=== PATIENT | female | born 2000 | race African-American/Black ===

== ENCOUNTER 2023-07-18 12:20 | Emergency (ER) | payer OTHER, MEDICAID, SELFPAY ==
[2023-07-18 12:40] VITALS: BP 129/73; PULSE 86; RESP 15; TEMP 36.9; O2SAT 100; BMI 30.2
== END 2023-07-18 19:25 | disposition left against medical advice (07) ==
PROVIDERS: Emergency Provider Emergency Medicine
DX: R07.9 Chest pain, unspecified (principal)
CPT/HCPCS: 93005; 99281

== ENCOUNTER 2024-02-25 17:19 | Emergency (ER) | payer OTHER, MEDICAID, SELFPAY ==
[2024-02-25 17:20] VITALS: BP 146/76; PULSE 95; RESP 18; TEMP 37.1; O2SAT 100; BMI 27.2
--- NOTE | 2024-02-25 17:26 | DI.US.S_ITS ---
PROCEDURE: US OB <= 14 WEEKS FETUS INDICATIONS: BLEEDING AT 7 WEEKS OUTSIDE/PRIOR DATING DATA: Last menstrual period (LMP): 01/07/2024 LMP-based estimated date of delivery (LUIS A): 10/13/2024 First dating scan (date and location): 02/25/2024 Estimated date of delivery (LUIS A) from first dating scan: 10/12/2024 TECHNIQUE: Real-time scanning was performed of the fetus and maternal pelvic organs, with image documentation. Endovaginal scanning was also performed to better visualize the fetus and maternal ovaries. COMPARISON: None. FINDINGS: Embryo: Intrauterine gestational sac is seen with yolk sac and pole. [place]-rump length is 1.1 cm compatible with an estimated gestational age of 7 weeks 1 day. Heart rate: 143 beats per minute Maternal organs: Left ovary not visualized. Right ovary appears normal. A prominent perigestational sac hemorrhage is seen measuring 3.5 x 2.7 x 1.5 cm. IMPRESSION: 1. Single live intrauterine and size is concordant with clinical dates. 2. Prominent perigestational sac hemorrhage measuring 3.5 x 2.7 x 1.5 cm. Approved by: Sonny Christian M.D. on 02/25/2024 at 19:04
[2024-02-25 17:53] LABS: Add Manual Diff / Slide Review NO; Basophils Absolute Auto 0 /uL (0-100); Basophils Percent Auto 0.5 % (0-2); Eosinophils Absolute Auto 100 /uL (0-450); Eosinophils Percent Auto 1.4 % (2-4); Hemoglobin 12.3 g/dL (12.0-16.0); Lymphocytes Absolute Auto 2600 /uL (1100-4500); Mean Corpuscular HGB Conc 33.2 % (30-36); Mean Corpuscular Hemoglobin 28.5 PG (26-34); Mean Corpuscular Volume 85.7 fL (80-100); Monocytes Absolute Auto 700 /uL (0-900); Monocytes Percent Auto 9.8 % (3-14); Neutrophils Absolute Auto 3800 /uL (1500-7000); Neutrophils Percent Auto 52.3 % (50-75); Platelet Count 431 X10^3/uL (150-400); Red Blood Cell Count 4.32 X10^6/uL (4.0-5.2); Red Cell Distribution Width 14.5 % (11.6-14.8); White Blood Cell Count 7.2 X10^3/uL (4.5-11.0)
[2024-02-25 18:04] LABS: Alanine Aminotransferase 13 IU/L (<35); Albumin 4.6 g/dL (3.5-5.0); Albumin Globulin Ratio 1.3 (1.0-2.8); Alkaline Phosphatase 79 U/L (38-126); Aspartate Aminotransferase 19 IU/L (14-36); Bilirubin Total 0.6 mg/dL (0.2-1.3); Blood Urea Nitrogen 3 mg/dL (7-17); Calcium 10.1 mg/dL (8.4-10.2); Carbon Dioxide 23 mmol/L (22-32); Chloride 105 mmol/L (98-107); Estimated Glomerular Filt Rate > 60 mL/min (>60); Globulin 3.5 g/dL (1.7-4.1); Glucose 100 mg/dL (70-100); HEMOLYSIS < 15 (0-50); Potassium 3.3 mmol/L (3.4-5.1); Sodium 138 mmol/L (137-145); Total Protein 8.1 g/dL (6.3-8.2)
[2024-02-25 18:44] LABS: HCG Quantitative /Beta subunit 72917 mIU/mL
== END 2024-02-25 20:09 | disposition left against medical advice (07) ==
PROVIDERS: Emergency Medicine; Emergency Provider Emergency Medicine
DX: O46.90 Antepartum hemorrhage, unspecified, unspecified trimester (principal); Z3A.00 Weeks of gestation of pregnancy not specified
CPT/HCPCS: 36415; 76801; 76817; 80053; 84702; 85025; 86850; 86900; 86901; 99283

== ENCOUNTER → 2024-06-01 08:36 | Outpatient (CLI) | payer OTHER, MEDICAID, SELFPAY ==
[2024-06-01 09:35] LABS: Add Manual Diff / Slide Review NO; Basophils Absolute Auto 0 /uL (0-100); Basophils Percent Auto 0.7 % (0-2); Eosinophils Absolute Auto 0 /uL (0-450); Eosinophils Percent Auto 0.7 % (2-4); Hematocrit 32.6 % (36-46); Hemoglobin 10.8 g/dL (12.0-16.0); Lymphocytes Absolute Auto 1500 /uL (1100-4500); Mean Corpuscular HGB Conc 33.1 % (30-36); Mean Corpuscular Hemoglobin 27.3 PG (26-34); Mean Corpuscular Volume 82.4 fL (80-100); Monocytes Absolute Auto 500 /uL (0-900); Monocytes Percent Auto 8.7 % (3-14); Neutrophils Absolute Auto 3600 /uL (1500-7000); Neutrophils Percent Auto 63.9 % (50-75); Platelet Count 431 X10^3/uL (150-400); Red Blood Cell Count 3.95 X10^6/uL (4.0-5.2); Red Cell Distribution Width 14.3 % (11.6-14.8); White Blood Cell Count 5.7 X10^3/uL (4.5-11.0)
[2024-06-01 12:57] LABS: Urine N gonorrhoeae NOT DETECTED
[2024-06-01 15:46] LABS: Urine Chlamydia NOT DETECTED
[2024-06-01 17:04] LABS: Hepatitis B Surface Antigen NEGATIVE s/c (NEGATIVE); Rubella Antibody IgG 12.8 IU/mL (>15)
[2024-06-01 17:20] LABS: HIV 1 & 2 Ab/Ag 4th Gen Combo NEGATIVE (NEGATIVE); Hep C Virus Ab w/Reflex Quant NEGATIVE s/c (NEGATIVE)
[2024-06-02 08:10] LABS: RPR Screen Non Reactive (Non Reactive)
[2024-06-02 09:12] LABS: Varicella IgG Antibody <135 index (Immune >165)
== END ==
PROVIDERS: Referring Provider Student in an Organized Health Care Education/Training Program; Visit Provider Student in an Organized Health Care Education/Training Program
DX: Z34.80 Encounter for supervision of other normal pregnancy, unspecified trimester (principal)
CPT/HCPCS: 36415; 80055; 86787; 86803; 86850; 86900; 86901; 87086; 87389; 87491; 87591

== ENCOUNTER → 2024-06-04 14:25 | Outpatient (CLI) | payer OTHER, MEDICAID, SELFPAY ==
--- NOTE | 2024-06-04 14:26 | DI.US.S_ITS ---
PROCEDURE: US OB >= 14 WEEKS FETUS INDICATIONS: anatomy OUTSIDE/PRIOR DATING DATA: Last menstrual period (LMP): 01/07/24. LMP-based estimated date of delivery (LUIS A): 10/13/24. First dating scan (date and location): 02/25/24. Estimated date of delivery (LUIS A) from first dating scan: 10/12/24. The calculations are made using the working LUIS A of 10/13/24. TECHNIQUE: Real-time scanning was performed of the fetus, with image documentation and biometric measurements. Endovaginal scanning: No COMPARISON: None. FINDINGS: General: A single living intrauterine gestation is present. Presentation: Vertex. Placenta: Placental position is posterior, left , without previa. Amniotic fluid index: 12.4 cm, normal range is 5-24 cm. Single deepest vertical pocket is 3.8 cm. heart rate: 152 beats per minute. Maternal cervical canal: Closed and 4.1 cm long. Normal lower limit is 2.5 cm. biometrics: Biparietal diameter: 4.7 cm, 20 weeks two days Head circumference: 17.4 cm, 19 weeks six days Abdominal circumference: 16.3 cm, 21 weeks two days Femur length: 3.5 cm, 21 weeks one Clinically estimated gestational age: 21 weeks two days Composite gestational age from present scan: 20 weeks five days Estimated weight and percentile: 396 g, 32nd percentile Anatomic survey: Neuro: Ventricles are non-dilated at less than 10 mm. Cisterna magna is normal at 3-11 mm. Cerebellum is normal in size and morphology. Nuchal skin fold: Normal at less than 6 mm between 14-21 weeks gestational age. Face: Nose and lips, facial profile are normal. Spine: No evidence for spina bifida. Heart: 4-chambered heart is present, with normal ventricular outflow tracts. Diaphragm: Diaphragm is intact. Stomach: Left-sided stomach is present. Kidneys: No hydronephrosis. Normal is less than 5 mm in 2nd trimester, less than 7 mm in 3rd trimester. Cord: 3-vessel cord has orthotopic insertion. Bladder: Normal in size. Extremities: All 4 extremities identified. IMPRESSION: Single living intrauterine with estimated weight at the 32nd percentile. Symmetric growth in normal anatomy. Closed cervix and normal amniotic fluid. Posterior placenta. We strive to produce accurate, complete, and clear reports of imaging services. To assist us in improving patient care, this report was composed using standard report templates and voice recognition software. Therefore, it may contain abnormal punctuation, insertions and/or omissions. Occasional wrong-word or sound-alike substitutions may occur. Though we review the report and make efforts to correct it, we do recommend that the report be read carefully in proper context to recognize any text inaccuracies. Dictated by: Daja Cummings M.D. on 06/04/2024 at 16:43 Approved by: Daja Cummings M.D. on 06/04/2024 at 16:48
== END ==
PROVIDERS: Referring Provider Student in an Organized Health Care Education/Training Program; Visit Provider Student in an Organized Health Care Education/Training Program
DX: Z34.82 Encounter for supervision of other normal pregnancy, second trimester (principal); Z3A.20 20 weeks gestation of pregnancy
CPT/HCPCS: 76811

== ENCOUNTER → 2024-07-23 10:59 | Outpatient (CLI) | payer OTHER, MEDICAID, SELFPAY ==
[2024-07-23 12:39] LABS: Hematocrit 31.1 % (36-46); Hemoglobin 9.9 g/dL (12.0-16.0)
[2024-07-23 13:00] LABS: GTT (PREG) 1 Hour PP 50gm Dose 137 mg/dL (76-139)
== END ==
PROVIDERS: Referring Provider Student in an Organized Health Care Education/Training Program; Visit Provider Student in an Organized Health Care Education/Training Program
DX: Z34.82 Encounter for supervision of other normal pregnancy, second trimester (principal); Z3A.26 26 weeks gestation of pregnancy
CPT/HCPCS: 36415; 82950; 85014; 85018

== ENCOUNTER 2024-08-27 05:01 | Inpatient (IN) | payer OTHER, MEDICAID, SELFPAY ==
[2024-08-27] VITALS (57 sets, daily range): BP systolic 108–173; BP diastolic 65–116; PULSE 68–127; RESP 16–46; TEMP 36.6–37.1; O2SAT 96–100
[2024-08-27] MEDS: LACTATED RINGERS 1,000 ML 1000 ML IV (05:05)
--- NOTE | 2024-08-27 05:12 | ED.SEIZURE ---
HPI - Seizure General Chief Complaint: Seizure Stated Complaint: seizure/7mo preg Time Seen by Provider: 08/27/24 05:04 Source: family (), EMS, RN notes reviewed and old records reviewed Mode of arrival: EMS Limitations: altered mental status History of Present Illness HPI Narrative: 23-year-old proximally 33 weeks' gestation with estimated delivery date of 10/12/2024 presents with report of seizure activity with who states he woke up to patient shaking with generalized tonic-clonic type activity, he states when he woke up last about 3 or 4 minutes. EMS was contacted when they arrived patient was altered did have some additional seizure activity EN route. Patient received 4 g of Mag EN route as well as Versed. He states last night her stomach was bothering her, she did not eat very much but states no recent fevers no cold cough or congestion. No complaints of chest pain or shortness breath. He states that she was noting she was having a lot of Angel Yadav contractions recently. No reports of vaginal bleeding or fluid. No reports of abdominal pain. Patient does not have any history of seizure disorder. He states she is on prenatals but no other known medications. Prior delivery was vaginal. Denies any prior surgeries for . No known drug allergies. No tobacco, alcohol or recreational drugs. Patient has been receiving her care with Dr. Milton here locally Related Data Previous Rx's Medication Instructions Recorded acetaminophen 325 mg tablet 325 mg PO Q4-6H PRN pain #30 tabs 08/31/24 docusate sodium 100 mg capsule 100 mg PO DAILY Prevent 08/31/24 constipation #20 caps ferrous gluconate 324 mg (37.5 mg 324 mg PO DAILY Anemia #30 tabs 08/31/24 iron) tablet ibuprofen 600 mg tablet 600 mg PO Q6H PRN pain #30 tabs 08/31/24 labetalol 300 mg tablet 300 mg PO TID High blood pressure 08/31/24 #60 tabs nifedipine 30 mg tablet,extended 30 mg PO BID High blood pressure 08/31/24 release #60 tabs oxycodone 5 mg tablet 5 mg PO Q6H PRN pain #20 tabs 08/31/24 Allergies Allergy/AdvReac Type Severity Reaction Status Date / Time No Known Drug Allergies Allergy Verified 07/23/24 14:05 Review of Systems Review of Systems ROS Unobtainable: Unobtainable due to mental status/LOC Patient History Medical History (Updated 08/30/24 @ 08:54 by Giana Landis MD) Eclampsia Vaginal delivery Staph infection Surgical History History of dental surgery Family History Mother Cardiac arrhythmia Sister IBS (irritable bowel syndrome) Family/Other Cerebral palsy Family/Other Congenital deafness Social History marital status: number of children: 1 household members: spouse and children lives independently: Yes caregiver/support person: Yes housing: apartment pets and animals: No education level: high school occupational status: employed current occupational exposures/hazards: No special hermelindo needs: No travel history: over 6 months ago seatbelt use: sometimes water heater temp set < 120 deg: Yes working smoke detector in home: Yes fire extinguisher in home: No carbon monox detector in home: Yes firearms in home: No do you feel safe at home: Yes Smoking Status: Current some day smoker second hand exposure: No alcohol intake: former (very occasionally when not ) substance use type: marijuana (still using while , 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 Patient did localize to pain with IV. HEENT: Atraumatic, pupils are pinpoint and equal, extraocular movements are intact, nares are clear, TMs are clear with no fluid, there is no conjunctival pallor. Throat is clear without any exudates, erythema, tonsillar enlargement or uvular deviation, no facial droop. Nasal cannula in place. HEART: Tachycardic but regular rate and rhythm without murmur, clicks, rubs. No carotid bruits, pulses are equal in upper and lower extremities LUNGS:Lungs clear to auscultation, no wheezes, rales, crackles, chest moves symmetrically, no tachypnea. ABD:bowel sounds normal, soft, non-tender, no guarding, rebound, rigidity, no masses noted, no hepatosplenomegaly : Gravid, no contractions appreciated. MSCL: Non-tender, NEURO:CN 2-12 intact, sensation normal, no hyperreflexia DTRs are decreased bilaterally at patella, no clonus SKIN: Patient does have what appears to be a bite landon on her right distal forearm. Initial Vital Signs Initial Vital Signs: Vital Signs Temperature 98.8 F 08/27/24 05:02 Pulse Rate 126 H 08/27/24 05:02 Respiratory Rate 31 H 08/27/24 05:02 Blood Pressure 124/69 08/27/24 05:02 Pulse Oximetry 97 08/27/24 05:02 Oxygen Delivery Method Nasal Cannula 08/27/24 05:02 Oxygen Flow Rate 6 08/27/24 05:02 Course Orders Ordered: Discontinued Medications Acetaminophen (Acetaminophen 325 Mg Tablet) 650 mg PO Q6H FLORINA Last Admin: 08/31/24 06:10 Dose: 650 mg Documented By: Admin: 08/31/24 00:07 Dose: 650 mg Documented By: Admin: 08/30/24 18:37 Dose: 650 mg Documented By: Admin: 08/30/24 12:44 Dose: 650 mg Documented By: Admin: 08/30/24 12:22 Dose: 650 mg Documented By: Admin: 08/30/24 02:27 Dose: 650 mg Documented By: SC Admin: 08/29/24 18:06 Dose: 650 mg Documented By: Admin: 08/29/24 10:49 Dose: 650 mg Documented By: Admin: 08/29/24 04:24 Dose: 650 mg Documented By: SC Admin: 08/28/24 18:54 Dose: 650 mg Documented By: Admin: 08/28/24 09:09 Dose: 650 mg Documented By: Admin: 08/28/24 01:57 Dose: 650 mg Documented By: Admin: 08/27/24 19:51 Dose: 650 mg Documented By: AR Albuterol (Albuterol 2.5 Mg/3 Ml Neb (Adult)) 2.5 mg INH NOW PRN PRN Reason: Coughing, Wheezing, Dyspnea Bacitracin (Bacitracin Oint 0.9 Gm Pckt) 1 applic TOP BID [facility] Last Admin: 08/31/24 08:22 Dose: 1 applic Documented By: Admin: 08/30/24 08:45 Dose: 1 applic Documented By: Admin: 08/30/24 08:32 Dose: 1 applic Documented By: Admin: 08/29/24 08:39 Dose: 1 applic Documented By: HPYuri Admin: 08/28/24 09:08 Dose: 1 applic Documented By: Admin: 08/27/24 16:00 Dose: 1 applic Documented By: SC Betamethasone Acet/Betameth SodPhos (Betamethasone 30 Mg/5 Ml Mdv) 12 mg IM NOW ONE Stop: 08/27/24 07:30 Last Admin: 08/27/24 07:37 Dose: 12 mg Documented By: JANE Carboprost Tromethamine (Carboprost 250 Mcg/Ml Ampul) 250 mcg IM Q90M PRN PRN Reason: Bleeding Citric Acid/Sodium Citrate (Citric Acid/Sodium Citrate 15 Ml Solution) 30 ml PO NOW ONE Stop: 08/27/24 08:07 Last Admin: 08/27/24 08:20 Dose: 30 ml Documented By: Diphenhydramine HCl (Diphenhydramine 50 Mg/Ml Vial) 25 mg IV Q3HR PRN PRN Reason: PRURITUS Stop: 08/28/24 08:46 Diphtheria/Tetanus/Acell Pertussis (Tet,Diph,Pertuss(Acell),Vac/Pf 0.5 Ml Syringe) 0.5 ml IM .ONCE ONE Stop: 08/27/24 10:48 Docusate Sodium (Docusate 100 Mg Capsule) 100 mg PO DAILY [facility] Last Admin: 08/31/24 08:21 Dose: 100 mg Documented By: Admin: 08/30/24 08:31 Dose: 100 mg Documented By: Admin: 08/29/24 08:41 Dose: 100 mg Documented By: Admin: 08/28/24 09:08 Dose: 100 mg Documented By: GÓMEZ Emollient Ointment (Lanolin Oint 7 Gm) 1 applic TOP PRN PRN PRN Reason: Skin protectant Last Admin: 08/28/24 09:08 Dose: 1 applic Documented By: GÓMEZ Hydralazine HCl (Hydralazine 20 Mg/Ml Vial) 5 mg IV NOW ONE Stop: 08/27/24 07:01 Last Admin: 08/27/24 07:03 Dose: 5 mg Documented By: AB Hydralazine HCl (Hydralazine 20 Mg/Ml Vial) 5 mg IV NOW ONE Stop: 08/27/24 11:55 Last Admin: 08/27/24 11:55 Dose: 5 mg Documented By: SC Hydralazine HCl (Hydralazine 20 Mg/Ml Vial) 10 mg IV NOW ONE Stop: 08/27/24 17:48 Last Admin: 08/27/24 17:50 Dose: 10 mg Documented By: SC Hydromorphone HCl (Hydromorphone 1 Mg Inj) 0 mg IV Q5MIN PRN PRN Reason: Pain, Moderate (4-6) Hydroxyzine HCl (Hydroxyzine 50 Mg/Ml Inj) 25 mg IM NOW PRN PRN Reason: Pain, Mild (1-3) Lactated Ringer's (Lactated Ringers) 1,000 mls @ 1,000 mls/hr IV BOLUS ONE Stop: 08/27/24 06:03 Last Infusion: 08/27/24 06:08 Dose: Infused Documented By: Admin: 08/27/24 05:05 Dose: 1,000 mls/hr Documented By: Magnesium Sulfate (Magnesium Sulfate) 20 gm in 500 mls @ 50 mls/hr IV CONT FLORINA Last Admin: 08/28/24 02:50 Dose: 50 mls/hr Documented By: MARILYN Co-signed By: CHELA Infusion: 08/28/24 02:50 Dose: Infused Documented By: MARILYN Co-signed By: CHELA Admin: 08/27/24 16:50 Dose: 50 mls/hr Documented By: RITA Co-signed By: SNEHAL Infusion: 08/27/24 16:20 Dose: Infused Documented By: RITA Co-signed By: SNEHAL Infusion: 08/27/24 08:17 Dose: 50 mls/hr Documented By: JANE Co-signed By: SOPHY Admin: 08/27/24 06:20 Dose: 50 mls/hr Documented By: Co-signed By: CHELA Lactated Ringer's (Lactated Ringers) 1,000 mls @ 42 mls/hr IV CONT FLORINA Last Admin: 08/28/24 02:50 Dose: 42 mls/hr Documented By: MARILYN Lactated Ringer's (Lactated Ringers) 1,000 mls @ 999 mls/hr IV NOW ONE Stop: 08/27/24 09:06 Last Infusion: 08/27/24 10:49 Dose: Infused Documented By: Admin: 08/27/24 08:21 Dose: 999 mls/hr Documented By: Oxytocin/Lactated Ringer's (Oxytocin Premix) 30 unit in 500 mls @ 200 mls/hr IV CONT PRN; Protocol PRN Reason: Bleeding Cefazolin Sodium/Dextrose (Ancef) 100 mls @ 200 mls/hr IV NOW ONE Stop: 08/27/24 08:35 Last Admin: 08/27/24 09:05 Dose: 200 mls/hr Documented By: ROSINA Acetaminophen (Ofirmev) 1,000 mg in 100 mls @ 400 mls/hr IV NOW ONE Stop: 08/27/24 09:54 Last Admin: 08/27/24 10:01 Dose: 400 mls/hr Documented By: ROSINA Oxytocin/Lactated Ringer's (Oxytocin Premix) 30 unit in 500 mls @ 200 mls/hr IV NOW PRN; Protocol PRN Reason: Bleeding Tranexamic Acid 1,000 mg/ (Sodium Chloride) 100 mls @ 200 mls/hr IV NOW PRN PRN Reason: Bleeding Ibuprofen (Ibuprofen 600 Mg Tablet) 600 mg PO Q6H [facility] Last Admin: 08/31/24 06:10 Dose: 600 mg Documented By: Admin: 08/31/24 00:07 Dose: 600 mg Documented By: Admin: 08/30/24 18:38 Dose: 600 mg Documented By: Admin: 08/30/24 12:43 Dose: 600 mg Documented By: Admin: 08/30/24 12:22 Dose: 600 mg Documented By: Admin: 08/30/24 02:28 Dose: 600 mg Documented By: SC Admin: 08/29/24 18:07 Dose: 600 mg Documented By: Admin: 08/29/24 10:49 Dose: 600 mg Documented By: Admin: 08/29/24 04:24 Dose: 600 mg Documented By: SC Admin: 08/28/24 20:57 Dose: 600 mg Documented By: SC Admin: 08/28/24 13:57 Dose: 600 mg Documented By: ED Ketorolac Tromethamine (Ketorolac 30 Mg/Ml Vial) 30 mg IV Q6H FLORINA Stop: 08/28/24 04:48 Last Admin: 08/28/24 04:10 Dose: 30 mg Documented By: Admin: 08/27/24 22:02 Dose: 30 mg Documented By: Admin: 08/27/24 15:59 Dose: 30 mg Documented By: SC Labetalol HCl (Labetalol 20 Mg/4 Ml Syringe) 10 mg IV NOW ONE Stop: 08/27/24 05:06 Last Admin: 08/27/24 06:08 Dose: Not Given Documented By: AB Labetalol HCl (Labetalol 20 Mg/4 Ml Syringe) 20 mg IV NOW ONE Stop: 08/27/24 05:19 Last Admin: 08/27/24 06:12 Dose: 20 mg Documented By: AB Labetalol HCl (Labetalol 20 Mg/4 Ml Syringe) 20 mg IV NOW ONE Stop: 08/27/24 06:34 Last Admin: 08/27/24 06:36 Dose: 20 mg Documented By: AB Labetalol HCl (Labetalol 20 Mg/4 Ml Syringe) 40 mg IV NOW ONE Stop: 08/27/24 07:21 Last Admin: 08/27/24 07:30 Dose: 40 mg Documented By: JANE Labetalol HCl (Labetalol 20 Mg/4 Ml Syringe) 40 mg IV NOW ONE Stop: 08/27/24 08:44 Last Admin: 08/27/24 08:45 Dose: 40 mg Documented By: ED Labetalol HCl (Labetalol 20 Mg/4 Ml Syringe) 20 mg IV NOW ONE Stop: 08/27/24 16:10 Last Admin: 08/27/24 16:14 Dose: 20 mg Documented By: ED Labetalol HCl (Labetalol 20 Mg/4 Ml Syringe) 40 mg IV NOW ONE Stop: 08/27/24 16:39 Last Admin: 08/27/24 16:38 Dose: 40 mg Documented By: SC Labetalol HCl (Labetalol 100 Mg Tablet) 200 mg PO BID [place] Last Admin: 08/30/24 08:29 Dose: 200 mg Documented By: Admin: 08/29/24 21:39 Dose: 200 mg Documented By: SC Admin: 08/29/24 08:41 Dose: 200 mg Documented By: Admin: 08/28/24 20:57 Dose: 200 mg Documented By: SC Admin: 08/28/24 09:08 Dose: 200 mg Documented By: Admin: 08/27/24 21:03 Dose: 200 mg Documented By: Admin: 08/27/24 17:27 Dose: 200 mg Documented By: SC Labetalol HCl (Labetalol 100 Mg Tablet) 200 mg PO TID [facility] Last Admin: 08/31/24 08:21 Dose: 200 mg Documented By: Admin: 08/30/24 21:13 Dose: 200 mg Documented By: AG Labetalol HCl (Labetalol 100 Mg Tablet) 200 mg PO NOW ONE Stop: 08/30/24 13:05 Last Admin: 08/30/24 13:10 Dose: 200 mg Documented By: CLOVIS Labetalol HCl (Labetalol 100 Mg Tablet) 100 mg PO NOW ONE Stop: 08/31/24 09:32 Last Admin: 08/31/24 10:09 Dose: 100 mg Documented By: Measles/Mumps/Rubella Vaccine Live (Measles,Mumps,Rubella Vacc/Pf 0.5 Ml Vial) 0.5 ml SUBCUT .ONCE ONE Stop: 08/27/24 10:48 Methylergonovine Maleate (Methylergonovine 0.2 Mg/Ml Vial) 0.2 mg IM NOW PRN PRN Reason: Bleeding Methylergonovine Maleate (Methylergonovine 0.2 Mg Tablet) 0.2 mg PO Q6H PRN PRN Reason: Bleeding Midazolam HCl (Midazolam 2 Mg/2 Ml Vial) 2 mg IV NOW ONE Stop: 08/27/24 16:11 Misoprostol (Misoprostol 200 Mcg Tablet) 800 mcg RI NOW PRN PRN Reason: Bleeding Misoprostol (Misoprostol 200 Mcg Tablet) 400 mcg SL NOW PRN PRN Reason: Bleeding Naloxone HCl (Naloxone 0.4 Mg/Ml Vial) 0.4 mg IV Q2MIN PRN PRN Reason: Opiate Reversal Naloxone HCl (Naloxone 0.4 Mg/Ml Vial) 0.2 mg IV Q2MIN PRN PRN Reason: Opiate Reversal Nifedipine (Nifedipine 30 Mg Tab Er) 30 mg PO DAILY [facility] Last Admin: 08/27/24 08:20 Dose: 30 mg Documented By: Nifedipine (Nifedipine 30 Mg Tab Er) 30 mg PO DAILY [facility] Nifedipine (Nifedipine 30 Mg Tab Er) 30 mg PO BID [facility] Last Admin: 08/31/24 08:21 Dose: 30 mg Documented By: Admin: 08/30/24 21:13 Dose: 30 mg Documented By: Admin: 08/30/24 08:31 Dose: 30 mg Documented By: Admin: 08/29/24 21:39 Dose: 30 mg Documented By: SC Admin: 08/29/24 08:40 Dose: 30 mg Documented By: Admin: 08/28/24 20:57 Dose: 30 mg Documented By: SC Admin: 08/28/24 09:08 Dose: 30 mg Documented By: Admin: 08/27/24 21:03 Dose: 30 mg Documented By: MARILYN Nifedipine (Nifedipine 10 Mg Capsule) 10 mg SL NOW ONE Stop: 08/27/24 17:26 Last Admin: 08/27/24 17:27 Dose: 10 mg Documented By: SC Ondansetron HCl (Ondansetron 4 Mg/2 Ml Inj) 4 mg IV NOW PRN PRN Reason: Nausea And Vomiting Ondansetron HCl (Ondansetron 4 Mg/2 Ml Inj) 4 mg IV Q6HR PRN PRN Reason: Nausea Stop: 08/28/24 08:46 Ondansetron HCl (Ondansetron 4 Mg/2 Ml Inj) 4 mg IV Q6H PRN PRN Reason: Nausea And Vomiting Oxycodone HCl (Oxycodone Ir 5 Mg Tablet) 5 mg PO [place] PRN PRN Reason: Mild or moderate pain Oxycodone HCl (Oxycodone Ir 5 Mg Tablet) 5 mg PO Q4H PRN PRN Reason: Pain, Moderate (4-6) Last Admin: 08/31/24 08:22 Dose: 5 mg Documented By: Admin: 08/29/24 21:40 Dose: 5 mg Documented By: SC Oxytocin (Oxytocin 10 Unit/Ml Vial) 10 unit IM NOW PRN PRN Reason: Bleeding Oxytocin (Oxytocin 10 Unit/Ml Vial) 10 unit IM NOW PRN PRN Reason: Bleeding Vit/Calcium/Iron/Folic Ac ( Vit,Calc/Iron/Folic 1 Tablet) 1 tab PO DAILY [facility] Last Admin: 08/31/24 08:21 Dose: 1 tab Documented By: Admin: 08/30/24 08:31 Dose: 1 tab Documented By: Admin: 08/29/24 08:41 Dose: 1 tab Documented By: HPYuri Admin: 08/28/24 09:08 Dose: 1 tab Documented By: ED Rho Immune Globulin (Rho(D) Immune Globulin 1,500 Unit Syringe) 1,500 unit IM NOW PRN PRN Reason: Prevent Rh incomatibility Witch Stefanie/Glycerin (Witch Stefanie/Glycerin Pads) 1 each TOP Q30M PRN PRN Reason: Itching Vital Signs Vital signs: Vital Signs - 8 hr 08/27/24 05:02 08/27/24 05:05 08/27/24 05:06 Temperature 98.8 F Pulse Rate 126 H 127 H Respiratory Rate 31 H 46 H Blood Pressure 124/69 124/69 Pulse Oximetry 97 97 Oxygen Delivery Method Nasal Cannula Nasal Cannula Oxygen Flow Rate 6 6 08/27/24 05:06 08/27/24 05:10 08/27/24 05:13 Temperature Pulse Rate 126 H 125 H 126 H Respiratory Rate 37 H 46 H 32 H Blood Pressure Pulse Oximetry 97 97 97 Oxygen Delivery Method Nasal Cannula Nasal Cannula Nasal Cannula Oxygen Flow Rate 6 3 3 08/27/24 05:13 08/27/24 05:15 08/27/24 05:15 Temperature Pulse Rate 126 H Respiratory Rate 31 H Blood Pressure 140/86 145/86 H Pulse Oximetry 98 Oxygen Delivery Method Nasal Cannula Oxygen Flow Rate 1 08/27/24 05:20 08/27/24 05:20 08/27/24 05:25 Temperature Pulse Rate 114 H 107 H Respiratory Rate 33 H 27 H Blood Pressure 152/90 H Pulse Oximetry 98 98 Oxygen Delivery Method Oxygen Flow Rate 08/27/24 05:25 08/27/24 05:29 08/27/24 05:29 Temperature Pulse Rate 107 H Respiratory Rate 27 H Blood Pressure 143/89 H 153/102 H Pulse Oximetry Oxygen Delivery Method Oxygen Flow Rate 08/27/24 05:30 08/27/24 05:30 08/27/24 05:35 Temperature Pulse Rate 108 H Respiratory Rate 27 H Blood Pressure 144/101 H 142/97 H Pulse Oximetry 97 Oxygen Delivery Method Oxygen Flow Rate 08/27/24 05:35 08/27/24 05:39 08/27/24 05:39 Temperature Pulse Rate 106 H 102 H Respiratory Rate 29 H 21 Blood Pressure 140/96 H Pulse Oximetry 96 98 Oxygen Delivery Method Oxygen Flow Rate 08/27/24 05:40 08/27/24 05:40 08/27/24 05:40 Temperature Pulse Rate 112 H 103 H Respiratory Rate 22 24 Blood Pressure 168/106 H Pulse Oximetry 98 Oxygen Delivery Method Oxygen Flow Rate 08/27/24 05:45 08/27/24 05:45 08/27/24 05:50 Temperature Pulse Rate 116 H 111 H Respiratory Rate 25 H 27 H Blood Pressure 149/102 H Pulse Oximetry 100 Oxygen Delivery Method Room Air Oxygen Flow Rate 08/27/24 05:50 08/27/24 05:55 08/27/24 05:55 Temperature Pulse Rate 118 H Respiratory Rate 25 H Blood Pressure 144/101 H 151/106 H Pulse Oximetry Oxygen Delivery Method Oxygen Flow Rate 08/27/24 05:57 08/27/24 05:57 08/27/24 06:00 Temperature Pulse Rate 117 H 115 H Respiratory Rate 27 H 27 H Blood Pressure 148/104 H Pulse Oximetry 97 97 Oxygen Delivery Method Room Air Oxygen Flow Rate 08/27/24 06:00 Temperature Pulse Rate Respiratory Rate Blood Pressure 158/105 H Pulse Oximetry Oxygen Delivery Method Oxygen Flow Rate MDM - Seizure Lab Data 08/29/24 06:55 08/29/24 06:55 Labs: Lab Results 08/27/24 08/27/24 08/27/24 Range/Units 05:00 05:10 05:32 WBC 12.3 H (4.5-11.0) X10^3/uL RBC 5.20 (4.0-5.2) X10^6/uL Hgb 12.5 (12.0-16.0) g/dL Hct 41.1 (36-46) % MCV 79.1 L (80-100) fL MCH 24.0 L (26-34) PG MCHC 30.4 (30-36) % RDW 17.6 H (11.6-14.8) % Plt Count 230 (150-400) X10^3/uL Neut % (Auto) 84.4 H (50-75) % Lymph % (Auto) 10.7 L (25-40) % Appling % (Auto) 4.5 (3-14) % Eos % (Auto) 0.0 L (2-4) % Baso % (Auto) 0.4 (0-2) % Neut # (Auto) 74267 H (0781-7463) /uL Lymph # (Auto) 1300 (3575-7912) /uL Appling # (Auto) 600 (0-900) /uL Eos # (Auto) 0 (0-450) /uL Baso # (Auto) 0 (0-100) /uL PT 9.4 (9.4-12.5) SECONDS INR 0.8 L (0.9-1.3) APTT 29 (25.1-36.5) SECONDS VBG pH 7.27 L (7.33-7.43) VBG pCO2 34.1 L (45-50) mmHg VBG pO2 67 H (35-45) mmHg VBG HCO3 16 L (24-28) mmol/L VBG Total CO2 15 L (24-29) mmol/L VBG O2 Saturation 90 H (70-75) % VBG Base Excess -10.3 L (0-4) mmol/L FiO2 % 24.0 % % Sodium 133 L (137-145) mmol/L Potassium 3.9 (3.4-5.1) mmol/L Chloride 105 (98-107) mmol/L Carbon Dioxide 9 L* (22-32) mmol/L BUN 7 (7-17) mg/dL Creatinine 0.95 (0.52-1.04) mg/dL Estimated GFR > 60 (>60) mL/min BUN/Creatinine Ratio 7.4 (6-22) Glucose 127 H (70-100) mg/dL Uric Acid 7.5 H (2.5-6.2) mg/dL Calcium 9.3 (8.4-10.2) mg/dL Magnesium 7.1 H* (1.6-2.3) mg/dL Total Bilirubin 0.8 (0.2-1.3) mg/dL AST 322 H (14-36) IU/L ALT 193 H (<35) IU/L Alkaline Phosphatase 372 H (38-126) U/L Total Protein 6.8 (6.3-8.2) g/dL Albumin 3.4 L (3.5-5.0) g/dL Globulin 3.4 (1.7-4.1) g/dL Albumin/Globulin Ratio 1.0 (1.0-2.8) Ethyl Alcohol < 10 ( - 10) mg/dL MDM Narrative Medical decision making narrative: 23-year-old female with no known seizure history had 2 seizures this morning, was noted to be hypertensive 160 systolic in the field received Versed as well as 4 g magnesium EN route, patient had initial blood pressure 128 upon arrival but was trending upwards into the 140s on recheck. Able to wean down O2, patient appears to be protecting airway. Labs were sent. CBC shows white count of 12 hemoglobin 12.5 platelets are 230, INR 0.8, PTT is 29. Sodium is 133, pCO2 is 9, potassium 3.9 chloride 105 BUN 7 creatinine 0.95, Mag is 7.1, uric acid is up at 7.5, AST ALT and alk-phos are all elevated at 322, 193 and VBG shows a pH of 7.27, pCO2 of 34 PO2 of 66 with a bicarb of 15 appears to be metabolic acidosis. Patient received fluids. Spoke with Dr. Mederos covering for OBGYN asked that we continue with 2 g of magnesium per hour, labetalol 20 mg for systolic blood pressure greater than 160. Discussed would like to pain head CT and if negative we will likely transfer to and for continuous monitoring and likely transfer. Did have a sad some additional labs for evaluation of eclampsia. L and D present for NST in the department. Head CT prelim review no obvious bleeding. Formal read is negative for acute intracranial abnormality shows pansinusitis. Rechecked patient is still altered but having more purposeful movement. History obtained from patient's and EMR. Spoke with Dr. Mederos, plan for patient to be transferred to [facility] with the ultimate goal to transfer to [facility] with [facility]. Reviewed head CT labs and recent blood pressures been trending 148/100 diastolic. On rechecked patient's blood pressure was 162 systolic was given 20 mg of labetalol. On rechecked continued to be elevated, Dr. Mederos (Family Medicine/OB) and Dr. Wells (equipment operator/laborer) are in the department with patient and additional 20 mg of labetalol was given. Patient has become more alert, still confused but alert and becoming more interactive over time. Critical Care Time Critical Care Time Critical Care Time: Yes Total Critical Care Time: 45 Attestation: The high probability of a clinically significant, sudden or life threatening deterioration of the cardiac and neurologic system(s) required my full and direct attention, intervention and personal management. The aggregate critical care time was [--] minutes. This time is in addition to time spent performing reported procedures but includes the following: [x] Data Review and interpretation [x] Patient assessment and monitoring of vital signs [x] Documentation [x] Medication orders and management Discharge Plan Departure Patient Disposition: Admitted As Inpatient Clinical Impression: Eclampsia Admit Date/Time: 08/27/24 06:04 Admit Provider: Dionna Mederos
--- NOTE | 2024-08-27 05:16 | DI.CT.S_ITS ---
PROCEDURE: CT HEAD/BRAIN WO CON INDICATIONS: seizure 7months TECHNIQUE: Noncontrast 4.5 mm thick angled axial sections acquired from the foramen magnum to the vertex, with coronal and sagittal reformats. For radiation dose reduction, the following was used: automated exposure control, adjustment of mA and/or kV according to patient size. COMPARISON: None. FINDINGS: Image quality: Diagnostic. CSF spaces: Basal cisterns are patent. No extra-axial fluid collections. Ventricles are normal in size and shape. Brain: No midline shift. No intracranial masses or hemorrhage. Noel-white matter interface is normal. Skull and face: Calvarium and visualized facial bones are intact, without suspicious lesions. Sinuses: Visualized sinuses demonstrate prominent pansinus mucosal thickening. IMPRESSION: No acute intracranial pathology. The above findings are concordant with preliminary report. Dictated by: Neida Gonzalez M.D. on 08/27/2024 at 7:55 Approved by: Neida Gonzalez M.D. on 08/27/2024 at 7:55
[2024-08-27 05:28] LABS: Add Manual Diff / Slide Review NO; Basophils Absolute Auto 0 /uL (0-100); Basophils Percent Auto 0.4 % (0-2); Eosinophils Absolute Auto 0 /uL (0-450); Hematocrit 41.1 % (36-46); Hemoglobin 12.5 g/dL (12.0-16.0); Lymphocytes Absolute Auto 1300 /uL (1100-4500); Lymphocytes Percent Auto 10.7 % (25-40); Mean Corpuscular HGB Conc 30.4 % (30-36); Mean Corpuscular Volume 79.1 fL (80-100); Monocytes Absolute Auto 600 /uL (0-900); Monocytes Percent Auto 4.5 % (3-14); Neutrophils Absolute Auto 10400 /uL (1500-7000); Neutrophils Percent Auto 84.4 % (50-75); Platelet Count 230 X10^3/uL (150-400); Red Cell Distribution Width 17.6 % (11.6-14.8); White Blood Cell Count 12.3 X10^3/uL (4.5-11.0)
[2024-08-27 05:35] LABS: Base Excess VBG -10.3 mmol/L (0-4); HCO3 VBG 16 mmol/L (24-28); Oxygen Saturation VBG 90 % (70-75); PCO2 VBG 34.1 mmHg (45-50); PO2 VBG 67 mmHg (35-45); Total CO2 VBG 15 mmol/L (24-29); pH VBG 7.27 (7.33-7.43)
[2024-08-27 05:39] LABS: INR 0.8 (0.9-1.3); Prothrombin Time 9.4 SECONDS (9.4-12.5)
[2024-08-27 05:40] LABS: Alanine Aminotransferase 193 IU/L (<35); Albumin 3.4 g/dL (3.5-5.0); Alkaline Phosphatase 372 U/L (38-126); Aspartate Aminotransferase 322 IU/L (14-36); BUN Creatinine Ratio 7.4 (6-22); Bilirubin Total 0.8 mg/dL (0.2-1.3); Blood Urea Nitrogen 7 mg/dL (7-17); Calcium 9.3 mg/dL (8.4-10.2); Chloride 105 mmol/L (98-107); Estimated Glomerular Filt Rate > 60 mL/min (>60); Ethanol (ETOH) < 10 mg/dL; Globulin 3.4 g/dL (1.7-4.1); Glucose 127 mg/dL (70-100); HEMOLYSIS 17 (0-50); Potassium 3.9 mmol/L (3.4-5.1); Sodium 133 mmol/L (137-145); Total Protein 6.8 g/dL (6.3-8.2); Uric Acid 7.5 mg/dL (2.5-6.2)
[2024-08-27 05:41] LABS: PTT Partial Thromboplastin Tim 29 SECONDS (25.1-36.5)
[2024-08-27 05:42] LABS: Carbon Dioxide 9 mmol/L (22-32); Magnesium 7.1 mg/dL (1.6-2.3)
--- NOTE | 2024-08-27 06:03 | PC.NURSE ---
OB nurse at bedside 0530, Pt on monitor at 0540. NST will be printed
[2024-08-27] MEDS: LABETALOL 20 MG/4 ML SYRINGE IV ×3 (06:12→16:14)
[2024-08-27] MEDS: MAGNESIUM SULFATE 20 GM/500 ML IV.SOLN IV ×2 (06:20→16:50)
--- NOTE | 2024-08-27 06:22 | DI.US.S_ITS ---
PROCEDURE: US OB LIMITED INDICATIONS: pre-e OUTSIDE/PRIOR DATING DATA: Last menstrual period (LMP): 01/07/2024. LMP-based estimated date of delivery (LUIS A): 10/13/2024. First dating scan (date and location): 03/16/2024. Estimated date of delivery (LUIS A) from first dating scan: 10/12/2024. The calculations are made using the clinical LUIS A of 10/13/2024. TECHNIQUE: Real-time scanning was performed of the fetus, with image documentation and biometric measurements. Biophysical profile was also obtained. Endovaginal scanning: Not performed COMPARISON: 06/04/2024. FINDINGS: General: A single living intrauterine gestation is present. Presentation: Vertex. Placenta: Placental position is posterior left , without previa. Amniotic fluid index: 11.7 cm, normal range is 5-24 cm. Single deepest vertical pocket is 4.2 cm. heart rate: 139 beats per minute. Maternal cervical canal: Not visualized. biometrics: Biparietal diameter: 7.9 centimeters, 31 weeks 6 days Head circumference: 27.6 centimeters, 30 weeks 1 day Abdominal circumference: 24.7 centimeters, 28 weeks 6 days Femur length: 5.6 centimeters, 29 weeks 2 days Clinically estimated gestational age: 33 weeks 2 days Composite gestational age from present scan: 30 weeks 0 days Estimated weight and percentile: 1370 grams Biophysical profile: Tone: 2 points. Movement: 0 points. Respiration: 0 points. Largest pocket of fluid: 2 points. Umbilical artery Doppler: Not requested IMPRESSION: Single living intrauterine at 30 weeks 0 days, LUIS A of 10/13/2024. Estimated weight of 1370 grams. BPP 4 of 8. Accurate primary report sent to ordering provider by the technologist at the time of exam. Agree with preliminary report. Ordering provider was bedside at time of exam. We strive to produce accurate, complete, and clear reports of imaging services. To assist us in improving patient care, this report was composed using standard report templates and voice recognition software. Therefore, it may contain abnormal punctuation, insertions and/or omissions. Occasional wrong-word or sound-alike substitutions may occur. Though we review the report and make efforts to correct it, we do recommend that the report be read carefully in proper context to recognize any text inaccuracies. Dictated by: Kael Baker M.D. on 08/27/2024 at 8:23 Approved by: Kale Baker M.D. on 08/27/2024 at 8:25
[2024-08-27] MEDS: HYDRALAZINE 20 MG/ML VIAL 5 MG IV ×2 (07:03→11:55)
--- NOTE | 2024-08-27 07:05 | P.HPOB_ITS ---
OB HPI Date/Time Date of admission: 08/27/24 Date Patient Seen: 08/27/24 Time Patient Seen: 06:15 History of Present Condition Chief complaint: seizure/7mo preg LUIS A Calculator 2 Estimated Delivery Date Method Current WG Current Estimate 10/12/24 Ultrasound #1 33w 3d Other Estimates 09/23/24 LMP (Uncertain) 36w 1d Estimated Gestational Age (weeks): 33w3d : 2 Para: 1 Narrative: Pt is a 23yo at 33w3d who presented with seizure activity at home. The pts reports he woke to the pt shaking next to him, generalized tonic-clonic, that lasted approximately 3-4 minutes. EMS was immediately contacted, and she was transported to the hospital via ambulance. In the ambulance, the pt received 4g of MgSO4 in addition to Versed. Her BP was noted to be in the 160s systolic. Upon arrival to the ED the pt was postictal and minimally responsive. She has gradually become more responsive with time. Her BP upon presentation to the ED was 124/69. The pts denies any complications with this or her last. She had no history of hypertension, gestational hypertension, or seizures. She had minimal stomach upset last night and ate a smaller than usual dinner, but has otherwise been feeling well. Her daughter did bite her left arm yesterday. He denies any tobacco, recreational drug, or alcohol use. Unable to obtain complete review of systems due to pts postictal state. The pt was late to care starting at 21wks gestation. In the ED, the pts BP gradually juan over time, up to the 160s/110s. She had a head CT completed that was negative. She was continued on MgSO4 2g/hr. She received 20mg IV Labetalol x2, IV Hydralazine 5mg x1, then IV Labetalol 40mg x1 with BPs maintaining in the upper 150s-160s/[id number]. NST was Category II with minimal variability, and BPP was 4/8, with EFW 1378g. care: limited care and initiated at week # (21) Dating criteria OB: based on 2nd trimester US only Ultrasounds: normal mid trimester US Obstetrical complications: none Medical complications OB: none Preadmission Labs Last OB Lab Results: 2 Blood Type A Positive 06/01/24 08:59 Antibody Screen Negative 06/01/24 08:59 Hct 41.1 % (36-46) 08/27/24 05:10 Hgb 12.5 g/dL (12.0-16.0) 08/27/24 05:10 Hep Bs Antigen Negative s/c (NEGATIVE) 06/01/24 08:59 Hepatitis C Antibody Negative s/c (NEGATIVE) 06/01/24 08:59 Rubella Antibody 12.8 IU/mL (>15) L 06/01/24 08:59 VZV IgG Antibody <135 index (Immune >165) L 06/01/24 08:59 Glucose 1 Hr 50 gm 137 mg/dL (76-139) 07/23/24 12:15 -: Urine: negative External Labs -: Urine: negative Prior (ies) Past Pregnancies Del. Date GA/Weeks Labor Lgth Wt Sex Route Outcome Anesthesia Place Delv Breastfeed Preg Comp Name 10/08/21 ~37 13 6 lb 9 oz Female vaginal live - epidural [facility] 6 months delivery Gregorio PFSH Medical History Vaginal delivery Staph infection Surgical History History of dental surgery Family History Mother Cardiac arrhythmia Sister IBS (irritable bowel syndrome) Family/Other Cerebral palsy Family/Other Congenital deafness Social History marital status: number of children: 1 household members: spouse and children lives independently: Yes caregiver/support person: Yes housing: apartment pets and animals: No education level: high school occupational status: employed current occupational exposures/hazards: No special hermelindo needs: No travel history: over 6 months ago seatbelt use: sometimes water heater temp set < 120 deg: Yes working smoke detector in home: Yes fire extinguisher in home: No carbon monox detector in home: Yes firearms in home: No do you feel safe at home: Yes Smoking Status: Never smoker second hand exposure: No alcohol intake: former (very occasionally when not ) substance use type: marijuana (still using while , not receptive to teaching) during the past year weight has: other (fluctuates) well-balanced diet: rarely or never daily servings fruits/ve-1 (1-2) caffeine: Yes (1-2 soft drinks, occasional coffee) Type(s) of exercise: walking and yoga Meds Home Medications and Allergies Home Medications Medication Instructions Recorded Confirmed Type No Known Home Medications 06/01/24 07/23/24 History Allergies Allergy/AdvReac Type Severity Reaction Status Date / Time No Known Drug Allergies Allergy Verified 07/23/24 14:05 OB Exam Narrative Exam Narrative: Gen: NAD, laying in bed, responding appropriately to questions but appears very groggy CV: RRR, no murmurs Resp: clear to auscultation bilaterally Abd: gravid, soft, nontender Ext: no edema Neuro: CN II-XII grossly intact, 2+ reflexes, no clonus Objective Imaging us ob limited: Radiologist's impression: BPP 4/8 (points off for movement, breathing), EFW 1378g Labs 08/27/24 05:10 08/27/24 05:10 Labs: Laboratory Results - last 24 hr 08/27/24 08/27/24 08/27/24 05:00 05:10 05:32 WBC 12.3 H RBC 5.20 Hgb 12.5 Hct 41.1 MCV 79.1 L MCH 24.0 L MCHC 30.4 RDW 17.6 H Plt Count 230 Neut % (Auto) 84.4 H Lymph % (Auto) 10.7 L [place] % (Auto) 4.5 Eos % (Auto) 0.0 L Baso % (Auto) 0.4 Neut # (Auto) 94259 H Lymph # (Auto) 1300 [place] # (Auto) 600 Eos # (Auto) 0 Baso # (Auto) 0 PT 9.4 INR 0.8 L APTT 29 VBG pH 7.27 L VBG pCO2 34.1 L VBG pO2 67 H VBG HCO3 16 L VBG Total CO2 15 L VBG O2 Saturation 90 H VBG Base Excess -10.3 L FiO2 % 24.0 % Sodium 133 L Potassium 3.9 Chloride 105 Carbon Dioxide 9 L* BUN 7 Creatinine 0.95 Estimated GFR > 60 BUN/Creatinine Ratio 7.4 Glucose 127 H Uric Acid 7.5 H Calcium 9.3 Magnesium 7.1 H* Total Bilirubin 0.8 AST 322 H ALT 193 H Alkaline Phosphatase 372 H Total Protein 6.8 Albumin 3.4 L Globulin 3.4 Albumin/Globulin Ratio 1.0 Ethyl Alcohol < 10 Assessment and Plan Assessment and Plan Assessment and Plan narrative: 23yo at 33w3d here with eclamptic seizure. No risk factors present, otherwise uncomplicated. BPs elevated to severe range. Liver enzymes elevated, normal platelets (although falling) and no evidence hemolysis. Creatinine rising as well. Pr/Cr currently pending, however all other symptoms, BPs, and labs point to eclampsia. Head CT negative. Pt currently on MgS04, stabilizing BPs with IV antihypertensives. NST Category II with 4/8 BPP. Pt did receive Versed in the ambulance, and is recovering from postictal state. Dr Wells present for consultation throughout care. Discussed care with Dr Dunne, RUTHM at the . Due to the pts unstable BPs and inability to assure wellbeing, recommends delivery immediately via primary . Dr Milton, primary OB, to perform . - q6hr labs until stabilized/BPs normal range - Start PO Nifedipine 30mg XR when pt able to tolerate PO - If BPs not stabilizing with PO and IV medications, recommend Nicardipine drip - IM Betamethasone now - Continue MgSO4 2g/hr - Children's transport team contacted for transfer of baby after delivery - Plan for urgent , Dr Milton to consent Time-Based Coding :: [TOTAL MINUTES] spent with patient and on the chart (including review of chart, obtaining history, exam, reviewing outside data, placing orders, documenting exam and treatment plan, and counseling patient) on [DATE].
--- NOTE | 2024-08-27 07:21 | PC.NURSE ---
Addendum entered by Tammi Jimenez R.N. 08/27/24 08:23: Bicep reflex intact. Pt able to move all extremities; pt does not report altered sensation in extremities. Addendum entered by Tammi Jimenez R.N. 08/27/24 08:22: Pt reports feeling tired. Original Note: Seizure earlier this morning. Pt is now alert and oriented pupils 3mm equal and reactive. Pt on heart monitor and baby monitor. Pt able to move all extremities. OB doc at bedside. Baby heart rate at 135, Current vitals of pt 91 bpm, 151/106, 99% RA.
[2024-08-27] MEDS: LABETALOL 20 MG/4 ML SYRINGE 40 MG IV ×3 (07:30→16:38)
[2024-08-27] MEDS: BETAMETHASONE 30 MG/5 ML MDV 12 MG IM (07:37)
[2024-08-27] MEDS: CITRIC ACID/SODIUM CITRATE 15 ML SOLUTION 30 ML PO (08:20)
[2024-08-27] MEDS: NIFEdipine 30 MG TAB ER PO ×2 (08:20→21:03)
[2024-08-27] MEDS: LACTATED RINGERS 1,000 ML 999 ML IV (08:21)
[2024-08-27 08:22] LABS: Creatinine Urine Random 86.01 mg/dL
[2024-08-27 08:26] LABS: Appearance Urine UA CLEAR; Bilirubin Urine UA NEGATIVE (NEGATIVE); Color Urine UA YELLOW; Glucose Urine UA NEGATIVE (Negative); Ketones Urine UA NEGATIVE (NEGATIVE); Leukocyte Esterase Urine UA 1+ (NEGATIVE); Nitrite Urine UA NEGATIVE (Negative); Occult Blood Urine UA 3+ (Negative); Protein Urine UA 3+ (Negative); Specific Gravity Urine UA >=1.030 (1.000-1.035); Urobilinogen Urine UA 0.2 E.U./dL (0.2); pH Urine UA 5.5 (4.5-8.0)
[2024-08-27 08:28] LABS: UR Morphine/Opiate cutoff 300 Negative (Negative); Ur Creatinine Normal (Normal); Ur Specific Gravity Normal (Normal); Urine Amphetamines Negative (Negative); Urine Barbiturates Negative (Negative); Urine Benzodiazepines Negative (Negative); Urine Cocaine Negative (Negative); Urine MDMA Negative (Negative); Urine Methadone Negative (Negative); Urine Methamphetamines Negative (Negative); Urine Oxycodone Negative (Negative); Urine Phencyclidine Negative (Negative); Urine Tetrahydrocannabinol Positive (Negative); Urine Tricyclic Antidepressant Negative (Negative); Urine pH Normal (Normal)
[2024-08-27 08:33] LABS: Bacteria Urine Occasional (0-1); RBC Urine 1-5/HPF (0-5/HPF); Squamous Epithelial Cell Urine None Seen (0-5/HPF); Urine Volume Low Vol <10mL (spun); WBC Urine 0-1/HPF (0-5/HPF)
[2024-08-27 08:34] LABS: Culture Indicated Urine Specimen Cultured
[2024-08-27 08:50] LABS: Protein (Total) Urine Random 1142 mg/dL (0-12); Protein Creatinine Ratio Urine 13.27 GRAM/24H
[2024-08-27] MEDS: CEFAZOLIN 2 GM/100 ML PREMIX 100 ML IV (09:05)
--- NOTE | 2024-08-27 09:21 | SUR.OPER ---
Supine on Padded OR bed, head on pillow, safety belt at thigh, arms secured on padded arm boards at <90 degrees abduction. Bump under right buttock. Legs uncrossed with pillow under knees, gel pad to heels, tape over blanket to lower legs.
--- NOTE | 2024-08-27 09:33 | SUR.OPER ---
fht pre incision 140 time of viable at 0918
--- NOTE | 2024-08-27 09:59 | P.OP_ITS ---
Operative Date/Time/Diagnoses Date of procedure: 08/27/24 Time of procedure: 09:00 Pre-op diagnosis: 1. Diaz intrauterine gestation at 33+3 weeks 2. Eclampsia 3. Non-reassuring status Post-op diagnosis: same (s/p primary ) Procedure & Clinicians Procedure: Primary low transverse section Same procedure as scheduled: Yes Indications: 23yo at 33+3 weeks EGA with uncomplicated course, brought in by EMS for a witnessed seizure at home. In the ER, was noted to have severe range blood pressures. During monitoring, was noted to have a category II tracing with BPP 4/10, thus in consultation with [facility], decision was made to proceed with delivery here with subsequent NICU transfer. The patient was then counseled and consented for PLTCS. Surgeon: Gali Milton Motorcycle Deliverer: Dionna Mederos Reason for Motorcycle Deliverer: Motorcycle Deliverer was necessary for timely, efficient, and safe completion of the procedure. Anesthesia Type: Spinal Operative Notes Findings: Normal-appearing uterus and bilateral fallopian tubes and ovaries. Clear fluid noted with AROM. Delivery productive of a viable female infant in cephalic presentation with APGARs 7/8/8 and weighing 1284g. Specimen(s): cord blood and cord pH Intraoperative meds administered: Acetaminophen, Duramorph, Ketorolac and Pitocin Applied: Catheter Estimated Blood Loss (mL): 700 Blood products transfused: none Procedure in detail: The risks, benefits, indications and alternatives of the procedure were reviewed with the patient and informed consent was obtained. The patient was taken to the operating room where spinal anesthesia was obtained without difficulty and was found to be adequate. Sequential compression devices were placed bilaterally for VTE prophylaxis. She was then prepped and draped in the normal, sterile fashion in the dorsal supine position with a leftward tilt. She received 2g Ancef for surgical prophylaxis. A Pfannenstiel skin incision was then made with the scalpel and carried through to the underlying layer of fascia. The fascia was digitally. The rectus muscles were then at the midline. The peritoneum was identified, and entered digitally. The peritoneal incision was then extended horizontally, superiorly and inferiorly, with good visualization of the bladder. The bladder blade was then inserted. The lower uterine segment was incised in a transverse fashion with the scalpel. The uterine incision was then extended manually in a cephalad/caudad direction. The amniotic sac was artificially ruptured, productive of clear fluid. The bladder blade was then removed. The infant?s head delivered atraumatically through the hysterotomy without difficulty, followed by the body.? The infant was noted to have spontaneous cry and good tone on the operative field. The cord was doubly clamped and cut after a 30sec delay with the handed off to the waiting pediatrics team. The placenta was then removed spontaneously with gentle traction on the umbilical cord. The uterus was then exteriorized and cleared of all clots and debris. The uterine incision was repaired with 0-vicryl in a running, locked fashion. A second layer using 0-monocryl was then used to imbricate the hysterotomy with excellent hemostasis achieved. The posterior cul-de-sac was then suctioned.? The uterus was returned to the abdomen and the hysterotomy was again noted to be hemostatic. The paracolic gutters were cleared of all clot and debris. The fascia was reapproximated with 0-vicryl in a running fashion. The subcutaneous layer was closed with 3-0 vicryl in simple, interrupted sutures. The skin was closed with 4-0 monocryl in a subcuticular fashion. The incision was then dressed with steri-strips and a pressure dressing was applied. At the completion of the case, a Crede maneuver was performed with good uterine tone and minimal vaginal bleeding noted.? The patient tolerated the procedure well. Sponge, lap and needle counts were correct x3. The patient was taken to the recovery room in stable condition. The patient is a candidate for a trial of labor after . Complications: none Post-operative Condition: stable Disposition: PACU Aftercare: routine postop
[2024-08-27] MEDS: ACETAMINOPHEN IV 1,000 MG/100 ML VIAL 400 MG IV (10:01)
[2024-08-27 11:19] LABS: Add Manual Diff / Slide Review NO; Basophils Absolute Auto 0 /uL (0-100); Basophils Percent Auto 0.2 % (0-2); Eosinophils Absolute Auto 0 /uL (0-450); Eosinophils Percent Auto 0.1 % (2-4); Hematocrit 36.8 % (36-46); Hemoglobin 11.6 g/dL (12.0-16.0); Lymphocytes Absolute Auto 500 /uL (1100-4500); Lymphocytes Percent Auto 4.3 % (25-40); Mean Corpuscular HGB Conc 31.4 % (30-36); Mean Corpuscular Volume 76.6 fL (80-100); Monocytes Absolute Auto 300 /uL (0-900); Monocytes Percent Auto 2.6 % (3-14); Neutrophils Absolute Auto 11000 /uL (1500-7000); Neutrophils Percent Auto 92.8 % (50-75); Platelet Count 151 X10^3/uL (150-400); Red Blood Cell Count 4.81 X10^6/uL (4.0-5.2); Red Cell Distribution Width 17.8 % (11.6-14.8); White Blood Cell Count 11.9 X10^3/uL (4.5-11.0)
[2024-08-27 11:32] LABS: Alanine Aminotransferase 140 IU/L (<35); Albumin 2.7 g/dL (3.5-5.0); Albumin Globulin Ratio 0.9 (1.0-2.8); Alkaline Phosphatase 305 U/L (38-126); Aspartate Aminotransferase 368 IU/L (14-36); BUN Creatinine Ratio 7.5 (6-22); Bilirubin Total 0.7 mg/dL (0.2-1.3); Blood Urea Nitrogen 7 mg/dL (7-17); Calcium 8.3 mg/dL (8.4-10.2); Carbon Dioxide 24 mmol/L (22-32); Chloride 103 mmol/L (98-107); Estimated Glomerular Filt Rate > 60 mL/min (>60); Globulin 2.9 g/dL (1.7-4.1); Glucose 130 mg/dL (70-100); HEMOLYSIS < 15 (0-50); Potassium 4.7 mmol/L (3.4-5.1); Sodium 129 mmol/L (137-145); Total Protein 5.6 g/dL (6.3-8.2)
--- NOTE | 2024-08-27 13:07 | CM.SWNOTE ---
OUTSIDE MACHINIST HELPER Note This OUTSIDE MACHINIST HELPER requested for consult to assess needs of this mom with emphasis on accessing basic needs and transportation resources. Mom gave to premature baby girl this morning who needed to be transferred to [facility]. Met w/mom, introduced self and role. According to our conversation: Mom lives with her and 2 yo in transitional housing at [facility] ([facility]) . This family is awaiting permanent housing and has been in transitional housing for approx one year. 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 Dad/spouse stays at home to care for their 2 yo while mom is working. This family has approx $200-300 in food stamps and [facility]. This family has no car and relies on bus, taxi and being on foot. Mom explains she and her moved from [place] where they are from, so that spouse could join the on [employer]. No local family. Mom reports feeling safe with her partner. [facility] provides housing and pays for utilities. When asked what mom's greatest concern is currently, she reports she needs diapers, baby supplies and pre-julia clothing for her bbay girl. In addition, this family is hopeful to get transportation down to [facility] as soon as possible in order to visit baby girl. This OUTSIDE MACHINIST HELPER placed call to Rosa Browning at [facility] P [phone] on mom's room phone (no working cell phone at bedside, dad has it) had to leave detailed msg requesting CB to the Center in order to connect with staff and with mom directly. Questions asked: Can [facility] assist with baby supplies and transportation. Suggested to staff that we contact [facility] nursing and social work to discuss this family's unique needs and get in contact with social media designer at [facility]. Linn Alfaro, art sales consultant is sending a referral to WIC on mom's behalf. Mom will be provided with a resources titled [facility] and Resources. This SW team can follow closely to be of support to this family and to the Center as needed. SANDRA Locke
[2024-08-27] MEDS: KETOROLAC 30 MG/ML VIAL IV ×2 (15:59→22:02)
[2024-08-27] MEDS: BACITRACIN OINT 0.9 GM PCKT 1 APPLIC TOP (16:00)
[2024-08-27] MEDS: LABETALOL 100 MG TABLET 200 MG PO ×2 (17:27→21:03)
[2024-08-27] MEDS: NIFEdipine 10 MG CAPSULE SL (17:27)
[2024-08-27] MEDS: HYDRALAZINE 20 MG/ML VIAL 10 MG IV (17:50)
[2024-08-27 17:55] LABS: Add Manual Diff / Slide Review NO; Basophils Absolute Auto 0 /uL (0-100); Basophils Percent Auto 0.2 % (0-2); Eosinophils Absolute Auto 0 /uL (0-450); Hematocrit 35.8 % (36-46); Hemoglobin 11.3 g/dL (12.0-16.0); Lymphocytes Absolute Auto 700 /uL (1100-4500); Lymphocytes Percent Auto 5.8 % (25-40); Mean Corpuscular HGB Conc 31.5 % (30-36); Mean Corpuscular Hemoglobin 23.9 PG (26-34); Mean Corpuscular Volume 75.9 fL (80-100); Monocytes Absolute Auto 300 /uL (0-900); Monocytes Percent Auto 2.7 % (3-14); Neutrophils Absolute Auto 11000 /uL (1500-7000); Neutrophils Percent Auto 91.3 % (50-75); Platelet Count 152 X10^3/uL (150-400); Red Blood Cell Count 4.71 X10^6/uL (4.0-5.2); Red Cell Distribution Width 17.8 % (11.6-14.8); White Blood Cell Count 12.1 X10^3/uL (4.5-11.0)
[2024-08-27 18:07] LABS: Alanine Aminotransferase 130 IU/L (<35); Albumin 2.7 g/dL (3.5-5.0); Albumin Globulin Ratio 0.8 (1.0-2.8); Alkaline Phosphatase 283 U/L (38-126); Aspartate Aminotransferase 305 IU/L (14-36); BUN Creatinine Ratio 11.3 (6-22); Bilirubin Total 0.6 mg/dL (0.2-1.3); Blood Urea Nitrogen 9 mg/dL (7-17); Calcium 7.9 mg/dL (8.4-10.2); Carbon Dioxide 21 mmol/L (22-32); Chloride 101 mmol/L (98-107); Estimated Glomerular Filt Rate > 60 mL/min (>60); Globulin 3.3 g/dL (1.7-4.1); Glucose 166 mg/dL (70-100); HEMOLYSIS 38 (0-50); Potassium 4.5 mmol/L (3.4-5.1); Sodium 127 mmol/L (137-145)
[2024-08-27] MEDS: ACETAMINOPHEN 325 MG TABLET 650 MG PO (19:51)
[2024-08-28] MEDS: ACETAMINOPHEN 325 MG TABLET 650 MG PO ×3 (01:57→18:54)
[2024-08-28] MEDS: MAGNESIUM SULFATE 20 GM/500 ML IV.SOLN IV (02:50)
[2024-08-28] MEDS: LACTATED RINGERS 1,000 ML 42 ML IV (02:50)
[2024-08-28] MEDS: KETOROLAC 30 MG/ML VIAL IV (04:10)
[2024-08-28 07:04] LABS: Add Manual Diff / Slide Review NO; Basophils Absolute Auto 0 /uL (0-100); Basophils Percent Auto 0.4 % (0-2); Eosinophils Absolute Auto 0 /uL (0-450); Eosinophils Percent Auto 0.1 % (2-4); Hematocrit 32.9 % (36-46); Hemoglobin 10.3 g/dL (12.0-16.0); Lymphocytes Absolute Auto 1100 /uL (1100-4500); Lymphocytes Percent Auto 10.2 % (25-40); Mean Corpuscular HGB Conc 31.4 % (30-36); Mean Corpuscular Hemoglobin 23.8 PG (26-34); Mean Corpuscular Volume 75.8 fL (80-100); Monocytes Absolute Auto 600 /uL (0-900); Monocytes Percent Auto 5.3 % (3-14); Neutrophils Absolute Auto 9300 /uL (1500-7000); Platelet Count 140 X10^3/uL (150-400); Red Blood Cell Count 4.33 X10^6/uL (4.0-5.2); Red Cell Distribution Width 18.5 % (11.6-14.8)
[2024-08-28 07:15] LABS: Alanine Aminotransferase 89 IU/L (<35); Albumin 2.4 g/dL (3.5-5.0); Albumin Globulin Ratio 0.8 (1.0-2.8); Alkaline Phosphatase 234 U/L (38-126); Aspartate Aminotransferase 154 IU/L (14-36); BUN Creatinine Ratio 12.4 (6-22); Bilirubin Total 0.4 mg/dL (0.2-1.3); Blood Urea Nitrogen 11 mg/dL (7-17); Calcium 7.1 mg/dL (8.4-10.2); Carbon Dioxide 24 mmol/L (22-32); Chloride 100 mmol/L (98-107); Estimated Glomerular Filt Rate > 60 mL/min (>60); Globulin 3.1 g/dL (1.7-4.1); Glucose 128 mg/dL (70-100); HEMOLYSIS < 15 (0-50); Potassium 4.7 mmol/L (3.4-5.1); Sodium 126 mmol/L (137-145); Total Protein 5.5 g/dL (6.3-8.2)
--- NOTE | 2024-08-28 08:28 | PM.OBPN.1 ---
Subjective - OB Subjective Patient comments: pain well controlled and incisional pain Mouthcard baby status: NICU ([facility]) Date Patient Seen: 08/28/24 Time Patient Seen: 08:31 Interval history: Patient has done extremely well overnight and she is actively diuresing. Magnesium sulfate discontinued at 9:30 a.m. and blood pressures remain in the normal range on oral nifedipine and labetalol. No nausea and vomiting. No headache or right upper quadrant pain. She has not yet started passing gas but denies nausea and vomiting. Exam Vital Signs (past 8 hours): Oxygen Delivery Method Room Air Oxygen Flow Rate 1 Const General: cooperative and comfortable Nutritional Appearance: average body habitus Orientation: alert and oriented x3 HENMT Head: normal to inspection, atraumatic and abrasion Ears: hearing grossly normal bilaterally Face and sinus: face symmetric Eyes General: appearance normal, both eyes and all related structures Conjunctivae: conjunctivae normal Sclera: sclerae normal EOM: EOM intact bilaterally Neck Neck: normal visual inspection Resp Effort & Inspection: normal respiratory effort and able to speak in complete sentences Auscultation: clear to auscultation bilaterally Cardio Rate: regular rate Rhythm: regular rhythm Heart Sounds: S1 normal, S2 normal and no murmurs GI Inspection: normal to inspection and incision (Surgical dressing clean and dry) Palpation: soft, no hepatosplenomegaly and tender (Mild, diffuse postsurgical tenderness) External Female Exam: other (No significant bleeding noted) Extrem General: no calf tenderness Psych Appearance: grossly normal Mental Status: mental status grossly normal Speech and Movement: speech and movement normal Mood: congruent mood Affect: normal affect Attitude: cooperative Thought Process: normal Thought Content: normal Judgment: judgment good Objective Labs 08/28/24 06:40 08/28/24 06:40 Labs: Laboratory Results - last 24 hr 08/27/24 08/27/24 08/27/24 07:54 11:00 17:35 WBC 11.9 H 12.1 H RBC 4.81 4.71 Hgb 11.6 L 11.3 L Hct 36.8 35.8 L MCV 76.6 L 75.9 L MCH 24.0 L 23.9 L MCHC 31.4 31.5 RDW 17.8 H 17.8 H Plt Count 151 152 Neut % (Auto) 92.8 H 91.3 H Lymph % (Auto) 4.3 L 5.8 L [place] % (Auto) 2.6 L 2.7 L Eos % (Auto) 0.1 L 0.0 L Baso % (Auto) 0.2 0.2 Neut # (Auto) 39963 H 60587 H Lymph # (Auto) 500 L 700 L [place] # (Auto) 300 300 Eos # (Auto) 0 0 Baso # (Auto) 0 0 Sodium 129 L 127 L Potassium 4.7 4.5 Chloride 103 101 Carbon Dioxide 24 21 L BUN 7 9 Creatinine 0.93 0.80 Estimated GFR > 60 > 60 BUN/Creatinine Ratio 7.5 11.3 Glucose 130 H 166 H Calcium 8.3 L 7.9 L Total Bilirubin 0.7 0.6 AST 368 H 305 H ALT 140 H 130 H Alkaline Phosphatase 305 H 283 H Total Protein 5.6 L 6.0 L Albumin 2.7 L 2.7 L Globulin 2.9 3.3 Albumin/Globulin Ratio 0.9 L 0.8 L Urine RBC 1-5/hpf Urine WBC 0-1/hpf Ur Squamous Epith Cells None seen Urine Bacteria Occasional (0-1) Ur Culture Indicated? Specimen cultured Vol Urine Centrifuged Low vol <10ml (spun) A U Random Total Protein 1142 H Protein/Creatinin Ratio 13.27 U Opiates 300ng/mL cut Negative Ur Oxycodone Screen Negative Urine Methadone Screen Negative Ur Barbiturates Screen Negative U Tricyclic Antidepress Negative Ur Phencyclidine Scrn Negative Ur Amphetamines Screen Negative U Methamphetamines Scrn Negative Ur MDMA Scrn (Ecstasy) Negative U Benzodiazepines Scrn Negative Urine Cocaine Screen Negative U Marijuana (THC) Screen Positive H Urine pH Normal Urine Specific [place] Normal Ur Creatinine Normal Blood Type A Positive Antibody Screen Negative 08/28/24 06:40 WBC 11.0 RBC 4.33 Hgb 10.3 L Hct 32.9 L MCV 75.8 L MCH 23.8 L MCHC 31.4 RDW 18.5 H Plt Count 140 L Neut % (Auto) 84.0 H Lymph % (Auto) 10.2 L [place] % (Auto) 5.3 Eos % (Auto) 0.1 L Baso % (Auto) 0.4 Neut # (Auto) 9300 H Lymph # (Auto) 1100 [place] # (Auto) 600 Eos # (Auto) 0 Baso # (Auto) 0 Sodium 126 L Potassium 4.7 Chloride 100 Carbon Dioxide 24 BUN 11 Creatinine 0.89 Estimated GFR > 60 BUN/Creatinine Ratio 12.4 Glucose 128 H Calcium 7.1 L Total Bilirubin 0.4 AST 154 H ALT 89 H Alkaline Phosphatase 234 H Total Protein 5.5 L Albumin 2.4 L Globulin 3.1 Albumin/Globulin Ratio 0.8 L Urine RBC Urine WBC Ur Squamous Epith Cells Urine Bacteria Ur Culture Indicated? Vol Urine Centrifuged U Random Total Protein Protein/Creatinin Ratio U Opiates 300ng/mL cut Ur Oxycodone Screen Urine Methadone Screen Ur Barbiturates Screen U Tricyclic Antidepress Ur Phencyclidine Scrn Ur Amphetamines Screen U Methamphetamines Scrn Ur MDMA Scrn (Ecstasy) U Benzodiazepines Scrn Urine Cocaine Screen U Marijuana (THC) Screen Urine pH Urine Specific [place] Ur Creatinine Blood Type Antibody Screen Assessment & Plan Assessment and Plan (1) delivery, delivered, current hospitalization: Status: Acute (2) Anemia affecting : Status: Acute (3) Elevated liver transaminase level: Status: Acute (4) Thrombocytopenia: Status: Acute (5) Eclampsia: Status: Acute Plan day: 1 plan OB: routine postop care Comments: Will continue current antihypertensive regimen (nifedipine ER 30 mg b.i.d. and labetalol 200 mg p.o. b.i.d.) and continue to observe for any subsequent elevations. Transaminase levels are dropping as expected but platelet count remains depressed slightly. A.M. labs tomorrow will include CBC with CMP. Patient may meet discharge criteria in a.m. and will be discharged on her current antihypertensive regimen for one-week postop follow-up and frequent blood pressure monitoring at home. Time-Based Coding :: [TOTAL MINUTES] spent with patient and on the chart (including review of chart, obtaining history, exam, reviewing outside data, placing orders, documenting exam and treatment plan, and counseling patient) on [DATE].
[2024-08-28] MEDS: LABETALOL 100 MG TABLET 200 MG PO ×2 (09:08→20:57)
[2024-08-28] MEDS: NIFEdipine 30 MG TAB ER PO ×2 (09:08→20:57)
[2024-08-28] MEDS: BACITRACIN OINT 0.9 GM PCKT 1 APPLIC TOP (09:08)
[2024-08-28] MEDS: LANOLIN OINT 7 GM 1 APPLIC TOP (09:08)
[2024-08-28] MEDS: PRENATAL VIT,CALC/IRON/FOLIC 1 TABLET 1 TAB PO (09:08)
[2024-08-28] MEDS: DOCUSATE 100 MG CAPSULE PO (09:08)
[2024-08-28] MEDS: IBUPROFEN 600 MG TABLET PO ×2 (13:57→20:57)
[2024-08-28 20:57] VITALS: BP 133/86; PULSE 80
[2024-08-29] MEDS: IBUPROFEN 600 MG TABLET PO ×3 (04:24→18:07)
[2024-08-29] MEDS: ACETAMINOPHEN 325 MG TABLET 650 MG PO ×3 (04:24→18:06)
[2024-08-29 07:17] LABS: Hematocrit 28.4 % (36-46); Hemoglobin 9.1 g/dL (12.0-16.0); Mean Corpuscular Hemoglobin 24.2 PG (26-34); Mean Corpuscular Volume 75.6 fL (80-100); Platelet Count 148 X10^3/uL (150-400); Red Blood Cell Count 3.76 X10^6/uL (4.0-5.2); Red Cell Distribution Width 18.4 % (11.6-14.8); White Blood Cell Count 13.2 X10^3/uL (4.5-11.0)
[2024-08-29 07:18] LABS: Add Manual Diff / Slide Review YES
[2024-08-29 07:38] LABS: Alanine Aminotransferase 52 IU/L (<35); Albumin 2.2 g/dL (3.5-5.0); Albumin Globulin Ratio 0.8 (1.0-2.8); Alkaline Phosphatase 189 U/L (38-126); Aspartate Aminotransferase 52 IU/L (14-36); BUN Creatinine Ratio 20.7 (6-22); Bilirubin Total 0.3 mg/dL (0.2-1.3); Blood Urea Nitrogen 17 mg/dL (7-17); Calcium 8.2 mg/dL (8.4-10.2); Carbon Dioxide 27 mmol/L (22-32); Chloride 105 mmol/L (98-107); Estimated Glomerular Filt Rate > 60 mL/min (>60); Globulin 2.8 g/dL (1.7-4.1); Glucose 70 mg/dL (70-100); HEMOLYSIS < 15 (0-50); Potassium 4.3 mmol/L (3.4-5.1); Sodium 130 mmol/L (137-145)
--- NOTE | 2024-08-29 08:03 | P.PNOB_ITS ---
Subjective - OB Subjective Patient comments: pain well controlled Everly baby status: NICU (at [place] , per mother on room air, doing well) Everly feeding status: pumping and storing Date Patient Seen: 08/29/24 Time Patient Seen: 08:04 Interval history: Patient was admitted with eclamptic seizure. She underwent a section for delivery of a viable female infant who was transferred to [facility] for NICU. Patient denies headaches, scotomata, epigastric pain. Her incisional pain is under control. She is passing gas. She is urinating and ambulating well. Exam Vital Signs (past 8 hours): Blood pressure 113/76 with range of blood pressures 136/93 to 107/70, pulse of 82, temperature 98.2? Oxygen Delivery Method Room Air Oxygen Flow Rate 1 Narrative Exam Narrative: Abdomen is soft, nontender. Uterus is firm, at U-1, nontender. Dressing is clean, dry, intact. Mild lochia. Extremities without edema and nontender. Objective Labs 08/29/24 06:55 08/29/24 06:55 Labs: Laboratory Results - last 24 hr 08/29/24 06:55 WBC 13.2 H RBC 3.76 L Hgb 9.1 L Hct 28.4 L MCV 75.6 L MCH 24.2 L MCHC 32.0 RDW 18.4 H Plt Count 148 L Neut % (Auto) Not Reportable Lymph % (Auto) Not Reportable [place] % (Auto) Not Reportable Eos % (Auto) Not Reportable Baso % (Auto) Not Reportable Lymph # (Auto) Not Reportable [place] # (Auto) Not Reportable Baso # (Auto) Not Reportable Sodium 130 L Potassium 4.3 Chloride 105 Carbon Dioxide 27 BUN 17 Creatinine 0.82 Estimated GFR > 60 BUN/Creatinine Ratio 20.7 Glucose 70 Calcium 8.2 L Total Bilirubin 0.3 AST 52 H ALT 52 H Alkaline Phosphatase 189 H Total Protein 5.0 L Albumin 2.2 L Globulin 2.8 Albumin/Globulin Ratio 0.8 L Assessment & Plan Assessment and Plan (1) delivery, delivered, current hospitalization: Status: Acute (2) Anemia affecting : Status: Acute (3) Elevated liver transaminase level: Status: Acute (4) Thrombocytopenia: Status: Acute (5) Eclampsia: Status: Acute Plan day: 2 plan OB: routine postop care Comments: Blood pressures are stabilizing. Labs are improving. Time-Based Coding :: [TOTAL MINUTES] spent with patient and on the chart (including review of chart, obtaining history, exam, reviewing outside data, placing orders, documenting exam and treatment plan, and counseling patient) on [DATE].
[2024-08-29] MEDS: BACITRACIN OINT 0.9 GM PCKT 1 APPLIC TOP (08:39)
[2024-08-29] MEDS: NIFEdipine 30 MG TAB ER PO ×2 (08:40→21:39)
[2024-08-29] MEDS: DOCUSATE 100 MG CAPSULE PO (08:41)
[2024-08-29] MEDS: LABETALOL 100 MG TABLET 200 MG PO ×2 (08:41→21:39)
[2024-08-29] MEDS: PRENATAL VIT,CALC/IRON/FOLIC 1 TABLET 1 TAB PO (08:41)
[2024-08-29 09:05] LABS: Neutrophils Absolute Manual 9240 /uL (3000-5900); Nucleated Red Blood Cells 2 #/Diff; RBC Morphology Normal Morphology; Total Cells Counted 100
[2024-08-29 21:39] VITALS: BP 136/87; PULSE 86
[2024-08-29] MEDS: OXYCODONE IR 5 MG TABLET PO (21:40)
[2024-08-30] MEDS: ACETAMINOPHEN 325 MG TABLET 650 MG PO ×4 (02:27→18:37)
[2024-08-30] MEDS: IBUPROFEN 600 MG TABLET PO ×4 (02:28→18:38)
[2024-08-30 08:29] VITALS: BP 139/97; PULSE 80
[2024-08-30] MEDS: LABETALOL 100 MG TABLET 200 MG PO ×3 (08:29→21:13)
[2024-08-30] MEDS: NIFEdipine 30 MG TAB ER PO ×2 (08:31→21:13)
[2024-08-30] MEDS: DOCUSATE 100 MG CAPSULE PO (08:31)
[2024-08-30] MEDS: PRENATAL VIT,CALC/IRON/FOLIC 1 TABLET 1 TAB PO (08:31)
[2024-08-30] MEDS: BACITRACIN OINT 0.9 GM PCKT 1 APPLIC TOP ×2 (08:32→08:45)
--- NOTE | 2024-08-30 09:00 | P.DS_ITS ---
Discharge Providers Provider Date of admission: 08/27/24 06:04 Discharge Date: 08/30/24 Primary care physician: Doctor Brian MD Consults: 08/27/24 08:39 [place] [facility] [place] Occupational Therapy Supervisor Routine Comment: Occupational Therapy Supervisor Consult needed for:: Other reason (Comment) Comment: No transportation, no childcare. Will be having premature transferred. Have 2yo at home. 08/27/24 10:47 Consult to Core Filer Routine Comment: [place] [facility] [place] Occupational Therapy Supervisor Routine Comment: Occupational Therapy Supervisor Consult needed for:: Comment: delivery, no transportation Discharge provider: Giana Landis MD Summary Hospital Course Date Patient Seen: 08/30/24 Time Patient Seen: 09:00 Diagnoses: 33 week gestation with eclamptic seizure requiring primary low-transverse section Hospital Course: Patient was transported to the hospital by ambulance after having a witnessed seizure. She was found to be eclamptic and treated with magnesium sulfate and antihypertensive medications. Due to nonreassuring heart tracing decision was made to deliver with primary section. She had a viable female weighing 1284 g. Patient was treated with magnesium sulfate and antihypertensive medications for 24 hours. She denies headaches, scotomata, epigastric pain. Her baby is in the NICU in [place]. She is pumping to initiate breast milk production. She is having bowel movements. She is urinating and ambulating well. Her pain is under control. Peripartum Data Infant Delivery Method: Section Procedures: Primary low-transverse section complications: none [place] 1: Gender: Female Disposition of : NICU Discharge Diagnosis (1) delivery, delivered, current hospitalization: Status: Acute (2) Anemia affecting : Status: Acute (3) Elevated liver transaminase level: Status: Acute (4) Thrombocytopenia: Status: Acute (5) Eclampsia: Status: Acute Status at Discharge Cognitive/behavioral status at discharge: oriented Functional status at discharge: independent ambulation Overall status at discharge: patient is progressing back to baseline Time Spent with Patient Time attestation: Total time spent providing and/or coordinating discharge services: Time spent: Less than 30 minutes Objective Labs 08/29/24 06:55 08/29/24 06:55 Labs: Laboratory Results - last 24 hr 08/29/24 06:55 Total Counted 100 Seg Neutrophils % 68.0 Band Neutrophils % 2.0 L Lymphocytes % (Manual) 23.0 L Monocytes % (Manual) 6.0 Eosinophils % (Manual) 1.0 L Neutrophils # (Manual) 9240 H Nucleated RBCs 2 H RBC Morphology Normal morphology Exam Vital Signs (past 8 hours): - Blood pressures have increased slightly since yesterday. Range of blood pressures now 146/97 to 121/73 08/30/24 08:29 Pulse Rate 80 Blood Pressure 139/97 H Oxygen Delivery Method Room Air Oxygen Flow Rate 1 Narrative Exam Narrative: HEENT exam within normal limits. Abdomen is soft, nontender. Uterus is firm, U-2, nontender. Incision is clean, dry, intact. Mild lochia. Extremities without edema and nontender. DTRs are normal. Discharge Plan Discharge Plan Patient Disposition: Home Discharge orders & Medications Prescriptions: New nifedipine 30 mg Tablet Extended Release 24hr 30 mg PO BID Qty: 60 0RF acetaminophen 325 mg Tablet 650 mg PO Q6H Qty: 30 0RF docusate sodium 100 mg Capsule 100 mg PO DAILY Qty: 20 0RF ibuprofen 600 mg Tablet 600 mg PO Q6H 30 Days Qty: 120 0RF labetalol 100 mg Tablet 200 mg PO BID Qty: 60 0RF oxycodone 5 mg Tablet 5 mg PO Q4H PRN (Reason: Pain, Moderate (4-6)) Qty: 10 0RF ferrous gluconate 324 mg (38 mg iron) tablet 324 mg PO DAILY Qty: 30 0RF Follow up/Referrals: Doctor Torres MD [Primary Care Provider] - Sho Wells MD [Physician] - (BP check on Saturday,08/31/24 @ 3:45pm with Dr. Wells Incision check on 09/04/2024 @ 1000 am 6 week post appt with on 10/09/2024 @ 3:00pm) Diet/Activity/Treatments Diet: Regular Activity: Nothing in vagina or lifting over 10 lb for 6 weeks Skin/Wound/Dressing Care Report to your healthcare provider any signs of infection, such as:: chills, fever, increased pain, unusual drainage and unusual redness Dressing: Leave Steri-Strips in place, can get wet just pat dry Visit Report/Discharge Packet Stand Alone Forms: Patient Portal/API, Stroke Signs & Symptoms Discharge Data Primary Care Provider: Doctor Brian
[2024-08-30 13:10] VITALS: BP 140/106; PULSE 84
[2024-08-30 18:37] VITALS: TEMP 36.8
[2024-08-30 18:38] VITALS: TEMP 36.8
[2024-08-30 21:13] VITALS: BP 129/92; PULSE 94
[2024-08-31] MEDS: IBUPROFEN 600 MG TABLET PO ×2 (00:07→06:10)
[2024-08-31] MEDS: ACETAMINOPHEN 325 MG TABLET 650 MG PO ×2 (00:07→06:10)
[2024-08-31 08:21] VITALS: BP 136/108; PULSE 92
[2024-08-31] MEDS: PRENATAL VIT,CALC/IRON/FOLIC 1 TABLET 1 TAB PO (08:21)
[2024-08-31] MEDS: DOCUSATE 100 MG CAPSULE PO (08:21)
[2024-08-31] MEDS: LABETALOL 100 MG TABLET 200 MG PO (08:21)
[2024-08-31] MEDS: NIFEdipine 30 MG TAB ER PO (08:21)
[2024-08-31] MEDS: BACITRACIN OINT 0.9 GM PCKT 1 APPLIC TOP (08:22)
[2024-08-31] MEDS: OXYCODONE IR 5 MG TABLET PO (08:22)
--- NOTE | 2024-08-31 10:00 | PM.OBDS.1 ---
Discharge Providers Provider Date of admission: 08/27/24 06:04 Discharge Date: 08/31/24 Primary care physician: Doctor Brian MD Consults: 08/27/24 08:39 Consult to [facility] [place] - Food And Nutrition Services Supervisor Routine Comment: Food And Nutrition Services Supervisor Consult needed for:: Other reason (Comment) Comment: No transportation, no childcare. Will be having premature transferred. Have 2yo at home. 08/27/24 10:47 Consult to Insurance Sales Assistant Routine Comment: Consult to [facility] [place] - Food And Nutrition Services Supervisor Routine Comment: Food And Nutrition Services Supervisor Consult needed for:: Comment: delivery, no transportation Discharge provider: Giana Landis MD Summary Hospital Course Date Patient Seen: 08/31/24 Time Patient Seen: 10:00 Diagnoses: 33 week gestation with eclamptic seizure delivered by primary low-transverse section Hospital Course: Patient was transported to the hospital by ambulance after having a witnessed seizure. She was found to be eclamptic and treated with magnesium sulfate and antihypertensive medications. Due to nonreassuring heart tracing decision was made to deliver with primary section. She had a viable female infant weighing 1284 g. Patient was treated with magnesium sulfate and antihypertensive medications for 24 hours. She denies headaches, scotomata, epigastric pain. Her baby is in the NICU in [place]. She is pumping to initiate breast milk production. She is having bowel movements. She is urinating and ambulating well. Her pain is under control. Patient initially had a significant decrease in her blood pressure. Decision to send her home was canceled on 08/30/2024 because her blood pressures increased. We have now increased her labetalol to 300 mg t.i.d.. Patient will be in [place] with her baby. Instructed her to have her blood pressure checks at least 3 times a day while she is visiting the baby in the hospital. She is to call if her systolic blood pressures are greater than 160 and her diastolic blood pressures are greater than 100. Discussed that she may eventually start getting her blood pressure quite low with these blood pressure medications. If she is starting to feel lightheaded, dizzy, fatigued and has low blood pressures to call for instructions for decreasing her blood pressure medications. We would normally see her in 1 week but since she will be in [place] without transportation if she has concerns the NICU can help her be seen by a physician there. Peripartum Data Delivery Method: Emergency Section (Nonreassuring heart tracing) Procedures: Primary low-transverse section complications: none [place] 1: Gender: Female Disposition of : NICU Discharge Diagnosis (1) delivery, delivered, current hospitalization: Status: Acute (2) Anemia affecting : Status: Acute (3) Elevated liver transaminase level: Status: Acute (4) Thrombocytopenia: Status: Acute (5) Eclampsia: Status: Acute Status at Discharge Cognitive/behavioral status at discharge: oriented Functional status at discharge: independent ambulation Overall status at discharge: patient is progressing back to baseline Time Spent with Patient Time attestation: Total time spent providing and/or coordinating discharge services: Time spent: Less than 30 minutes Objective Labs 08/29/24 06:55 08/29/24 06:55 Exam Vital Signs (past 8 hours): Blood pressure high over last 24 hours 140/106, the rest of her blood pressures between 120/86 and 138/96 08/31/24 08:21 Pulse Rate 92 H Blood Pressure 136/108 H Oxygen Delivery Method Room Air Oxygen Flow Rate 1 Narrative Exam Narrative: Abdomen is soft, nontender. Uterus is firm, U-2, nontender. Incision is clean, dry, intact with some mild ecchymosis above the incision. Mild lochia. Extremities without edema and nontender. DTRs are normal. Discharge Plan Discharge Plan Patient Disposition: Home Discharge orders & Medications Prescriptions: No Action acetaminophen 325 mg tablet 325 mg PO Q4-6H PRN (Reason: pain) Qty: 30 0RF docusate sodium 100 mg capsule 100 mg PO DAILY Qty: 20 0RF ferrous gluconate 324 mg (37.5 mg iron) tablet 324 mg PO DAILY Qty: 30 0RF ibuprofen 600 mg tablet 600 mg PO Q6H PRN (Reason: pain) Qty: 30 0RF labetalol 300 mg tablet 300 mg PO TID Qty: 60 0RF nifedipine 30 mg tablet extended release 30 mg PO BID Qty: 60 0RF oxycodone 5 mg tablet 5 mg PO Q6H PRN (Reason: pain) Qty: 20 0RF Follow up/Referrals: Gali Milton DO [Physician] - 6 Weeks (6 week Appt w/ Dr. Milton: @ 2pm (please check in at 1:45pm)) Diet/Activity/Treatments Diet: Regular Activity: Nothing in vagina or lifting over 10 lb for 6 weeks Skin/Wound/Dressing Care Report to your healthcare provider any signs of infection, such as:: chills, fever, increased pain, unusual drainage and unusual redness Dressing: Leave Steri-Strips in place, can get wet just pat dry Visit Report/Discharge Packet Instructions: Treatments for High Blood Pressure: More Than Just Taking a Pill, Depression, Hemorrhage, DI for High Blood Pressure, DI for Prescription Opioid Use Stand Alone Forms: Discharge: Care, Patient Portal/API, Stroke Signs & Symptoms Discharge Data Primary Care Provider: Miscellaneous,Doctor
[2024-08-31 10:09] VITALS: BP 136/94; PULSE 100
[2024-08-31] MEDS: LABETALOL 100 MG TABLET PO (10:09)
--- NOTE | 2024-08-31 11:12 | CM.SWNOTE ---
DC Note Mom discharging home today. Mom suggests she walk back to [facility]. Nursing staff suggest taxi home. Met w/mom to review discharge plan. Mom plans to return home to her spouse and 2 yo, further states transportation and a hotel have been arranged for she and her family to stay near their at [facility]. Suggested mom use [employer] taxi to get home via taxi voucher and mom agreeable. Placed call to [employer]. [employer] will transport mom home at no cost from to her apt at [facility]. scenic arts supervisor at 1300. Updated staff. MC
== END 2024-08-31 13:24 | disposition home or self-care (01) | DRG 540 ==
LOC: ED 05:12 → LABOR 06:05
PROVIDERS: Obstetrics & Gynecology; Student in an Organized Health Care Education/Training Program; Admitting Provider Family Medicine; Emergency Provider Emergency Medicine; Referring Provider Emergency Medicine; Visit Provider Family Medicine
PROC: (CPT 59514; principal; 2024-08-27 08:15)
DX: O15.1 Eclampsia complicating labor (principal); O76 Abnormality in fetal heart rate and rhythm complicating labor and delivery; O99.12 Other diseases of the blood and blood-forming organs and certain disorders involving the immune mechanism complicating childbirth; R74.01 Elevation of levels of liver transaminase levels; D69.6 Thrombocytopenia, unspecified; Z3A.33 33 weeks gestation of pregnancy; Z37.0 Single live birth
CPT/HCPCS: 36415; 59050; 59514; 70450; 76815; 76819; 80053; 80305; 80320; 81001; 82570; 82805; 83735; 84156; 84550; 85007; 85025; 85610; 85730; 86850; 86900; 86901; 87086; 99285; J0136; J0360; J0690; J0702; J1100; J1885; J2250; J2405; J3475